=== PATIENT | male | born 1985 | race African-American/Black ===

== ENCOUNTER 2018-12-23 15:47 | Emergency (ER) | payer SELFPAY ==
[~2018-12-23] VITALS: Ht 172.7 cm; Wt 100.0 kg
[2018-12-23] MEDS ORDERED: PREDNISONE 20MG TABLET PO ONE (18:00)
[2018-12-23] MEDS ORDERED: DIPHENHYDRAMINE 25MG CAPSULE PO ONE (18:00)
[2018-12-23 18:09] VITALS: BP 128/64
== END 2018-12-23 18:09 | disposition home or self-care (01) ==
LOC: ER 17:33
DX: B35.3 Tinea pedis (principal)
CPT/HCPCS: 99283; J7512; Q0163